=== PATIENT | female | born 1990 | race African-American/Black ===

== ENCOUNTER 2017-09-29 21:44 | Emergency (ER) | payer OTHER ==
[~2017-09-29] VITALS: Ht 157.5 cm; Wt 47.2 kg
== END 2017-09-30 00:32 | disposition home or self-care (01) ==
LOC: ER 21:44
DX: T78.49XA Other allergy, initial encounter (principal); R21 Rash and other nonspecific skin eruption

== ENCOUNTER 2017-10-02 13:20 | Emergency (ER) | payer OTHER ==
[~2017-10-02] VITALS: Ht 157.5 cm; Wt 47.2 kg
== END 2017-10-02 15:14 | disposition home or self-care (01) ==
LOC: ER 13:20
DX: R21 Rash and other nonspecific skin eruption (principal)